=== PATIENT | male | born 1980 | race Caucasian/White ===

== ENCOUNTER → 2020-10-11 | Outpatient (CLI) | payer BC ==
--- NOTE | 2020-10-11 12:55 | KCIC ---
Exam Date: 10/11/2020 12:[address] HEAD/BRAIN WO Indication: Reason: SEVERE HEADACHES X 1-1.5 YEARS, RIGHT EYE VISION CHANGES AND PRESSURE / Spl. Inst ructions: / History: TECHNIQUE: Head CT was performed without intravenous contrast. One or more of the following dose re duction techniques were utilized: *Automated exposure control (AEC) *Adjustment of mA and/or kV according to patient size *Use of iterative reconstruction technique *CT scan done according to ALARA, or ALARA/IMAGE GENTLY FINDINGS: The ventricles and sulci are normal for the patient's stated age. There is no evidence of acute int racranial hemorrhage, extra-axial collection, mass effect, midline shift, or acute territorial infarc t. No lesion of the skull base or the calvarium is seen. The visualized paranasal sinuses, mastoid ai r cells and orbits are normal in appearance. IMPRESSION: No evidence for acute intracranial abnormality. Electronically signed by: Carson Gibbons MD (10/11/2020 12:53 PM) [id number]
== END ==
LOC: KCIC CT 12:26
PROVIDERS: ATTEND Family Medicine
DX: G44.89 Other headache syndrome (principal)
CPT/HCPCS: 70450

== ENCOUNTER → 2021-04-20 | Day surgery (SDC) | payer BC ==
[~2021-04-20] VITALS: Ht 167.6 cm; Wt 95.2 kg
[~2021-04-20] MED LIST: LIDOCAINE 1%/EPI 1:100,000 20 ML VIAL. INJ ONE
[2021-04-20 11:33] VITALS: BP 130/69
--- NOTE | 2021-04-20 14:59 | PDOC4 ---
Operative Note Operative Note Date: April 202020 at 1300 Preoperative diagnosis: Back mass Postoperative diagnosis: Same Procedure: Excision of mass of the back Surgeon: Tramaine Specimen: Back mass Dictation: Patient is a 40-year-old male is complaining of enlarging mass on his mid back. The procedure of excision of back mass was explained to the patient detail risk benefits were also discussed including bleeding infection alternatives this procedure also discussed with patient who seemed to understand and gave a verbal written consent to have procedure performed. Patient was taken to the minors room placed in the prone positioning his back was prepped and draped usual sterile fashion using ChloraPrep. Area around the mass was injected with 1% lidocaine with epinephrine once this was anesthetized and the incision was made with 15 blade scalpel is carried down through subcutaneous tissue excising the mass sharply. The mass size was 1 cm with 1 cm margin. Wound was then closed in a single layer 4-0 subcuticular Monocryl Mastisol Steri-Strips and island dressing were applied. Patient tolerated procedure well was discharged home in stable condition all sponge instrument needle counts listed as correct estimated blood loss 5 mL EDILBERTO ACEVEDO MD Apr 20, 2021 14:58
--- NOTE | 2021-04-20 15:00 | DISCH ---
DISCHARGE INSTRUCTIONS Condition on Discharge Condition on Discharge: Stable Activity After Discharge Activity Instructions for Disc: Resume previous activity Diet after Discharge Diet after Discharge: Regular Wound Incision Care Other wound/incision instructi: Nishi shower in 24-hour Contacting the [facility] after DC Call your doctor for: If your condition worsens Follow-Up Follow up with: Dr. Acevedo in 2-week EDILBERTO ACEVEDO MD Apr 20, 2021 15:00
--- NOTE | 2021-04-22 17:09 | PATHOLOGY ---
[facility] Accession Number: [id number] . 01 Material submitted: . back - MID BACK MASS. Modifiers: mid . 02 Diagnosis: Segments of keratinizing squamous epithelium and focal attached fibrous tissue, mid back mass excision: - Epidermal inclusion cyst. (JPM/db; 04/22/2021) LBQ 04/22/2021 1223 Local . 02 Electronically signed: . Heber Castillo MD, Pathologist NPI- [id number] . 01 Gross description: . The specimen is received in formalin, labeled "Aguilar [place], mid back mass". Received are multiple segments of pale alvarez tissue measuring 2.5 x 1.5 x 0.3 cm. Sectioning reveals a possible previously disrupted cystic structure. The specimen is serially sectioned and submitted representatively in cassette A1.([facility]; 04/21/2021) [facility] 04/21/2021 1114 Local . 02 Pathologist provided ICD-10: L72.0 . 02 CPT . 883505 Specimen Comment: A courtesy copy of this report has been sent to [phone], [phone] Specimen Comment: [id number] Specimen Comment: Report sent to / DR VACA Performed at: 01 [facility] [address], [place], [place] [id number] MD Rc Conklin MD Phone: [phone] Performed at: 02 [facility] [address] [place], [place] [id number] MD Heber Castillo MD Phone: [phone]
== END | disposition home or self-care (01) ==
LOC: SURG 11:02
PROVIDERS: ATTEND Surgery
DX: R22.2 Localized swelling, mass and lump, trunk (principal); L72.0 Epidermal cyst; J45.909 Unspecified asthma, uncomplicated; Z79.899 Other long term (current) drug therapy; Z98.890 Other specified postprocedural states
CPT/HCPCS: 11403; 88304; J3490